=== PATIENT | male | born 1945 | race Two or more races ===

== ENCOUNTER 2019-08-22 10:03 | Emergency (ER) | payer OTHER ==
[~2019-08-22] VITALS: Ht 185.4 cm; Wt 106.6 kg
[2019-08-22 10:18] VITALS: BP 163/55
[2019-08-22] MEDS ORDERED: cefTRIAXone SOD 1,000 MG VL IM ONE ×2 (12:00)
--- NOTE | 2019-08-22 12:10 | NUR ---
PT PRESENTS TO THE ER FOR ABSCESS AT LT UPPER INNER THIGH/INGUINAL AREA. NO SIGNS OF DISTRESS NOTED AT THIS TIME. PT IS A&O X4. WILL CONTINUE TO MONITOR
== END 2019-08-22 12:28 | disposition home or self-care (01) ==
LOC: ER 10:03
DX: L02.828 Furuncle of other sites (principal); I10 Essential (primary) hypertension; Z88.0 Allergy status to penicillin
CPT/HCPCS: 96372; 99283; J0696